=== PATIENT | female | born 1990 | race African-American/Black ===

== ENCOUNTER 2016-08-30 09:30 | Emergency (ER) | payer OTHER ==
[~2016-08-30] VITALS: Ht 165.1 cm; Wt 88.5 kg
[~2016-08-30 09:30] MED LIST: FLEXERIL PO; TORADOL 10 MG T10 MG PO
[2016-08-30] MEDS ORDERED: IBUPROFEN 600600 M1 PO (10:53)
[2016-08-30] MEDS ORDERED: KEFLEX500 MG PO (10:53)
[2016-08-30 11:21] VITALS: BP 107/72
== END 2016-08-30 10:55 | disposition home or self-care (01) ==
LOC: ER 09:30
DX: S91.311A Laceration without foreign body, right foot, initial encounter (principal); M06.9 Rheumatoid arthritis, unspecified; M32.9 Systemic lupus erythematosus, unspecified; F10.99 Alcohol use, unspecified with unspecified alcohol-induced disorder; Z88.1 Allergy status to other antibiotic agents; W26.9XXA Contact with unspecified sharp object(s), initial encounter; Y93.02 Activity, running; Y92.488 Other paved roadways as the place of occurrence of the external cause; Y99.8 Other external cause status

== ENCOUNTER 2016-09-13 17:30 | Emergency (ER) | payer OTHER ==
[~2016-09-13] VITALS: Ht 165.1 cm; Wt 90.7 kg
[~2016-09-13 17:30] MED LIST changes: +IBUPROFEN 600600 M1 PO; +KEFLEX500 MG PO
[2016-09-13 17:31] VITALS: BP 122/80
== END 2016-09-13 18:18 | disposition home or self-care (01) ==
LOC: ER 17:30
DX: S91.311D Laceration without foreign body, right foot, subsequent encounter (principal); M32.9 Systemic lupus erythematosus, unspecified; M06.9 Rheumatoid arthritis, unspecified; F10.99 Alcohol use, unspecified with unspecified alcohol-induced disorder; Z88.1 Allergy status to other antibiotic agents; X58.XXXD Exposure to other specified factors, subsequent encounter; Y92.89 Other specified places as the place of occurrence of the external cause; Y99.8 Other external cause status

== ENCOUNTER → 2018-01-01 | Outpatient (CLI) | payer OTHER ==
[~2018-01-01] MED LIST changes: +MOBIC7.5 MG PO; +NORCO 5-325 TA1 EACH PO; +SPIRONOLACTONE25 M1 PO; +TOPAMAX 25 MG T25 M1 PO
[2018-01-01 08:33] LABS: MCH 27.2 pg (26.0-34.0); MCHC 33.2 g/dL (28.0-37.0); RDW 14.3 % (10.5-14.5)
[2018-01-01 08:35] LABS: HEMATOCRIT 39.3 % (37.0-47.0); HEMOGLOBIN 13.1 gm/dL (12.0-15.0); MCV 81.9 fL (80.0-100.0); RBC 4.8 mil/uL (4.20-5.00); WBC 9.6 thou/uL (4.0-11.0)
[2018-01-01 08:41] LABS: CALCIUM 9.4 mg/dL (8.5-10.1); CREATININE 0.8 mg/dL (0.6-1.0); POTASSIUM 4.2 mmol/L (3.5-5.1)
[2018-01-01 08:47] LABS: APTT 27.8 Seconds (24.5-32.8); PROTIME 10.7 Seconds (9.3-11.4)
[2018-01-01 10:41] LABS: CSF GLUCOSE 58 mg/dL (40-70); CSF PROTEIN 26 mg/dL (15-45)
[2018-01-01 10:55] LABS: CSF CLARITY CLEAR; CSF COLOR COLORLESS; CSF RBC 2 /mm3; CSF WBC 1 /mm3 (0-10); VOLUME 10 ml
== END | disposition home or self-care (01) ==
LOC: RAD 07:41
PROVIDERS: Psychiatry & Neurology Neurology; Radiology Vascular & Interventional Radiology
DX: G93.2 Benign intracranial hypertension (principal); Z88.8 Allergy status to other drugs, medicaments and biological substances; Z79.899 Other long term (current) drug therapy

== ENCOUNTER 2018-01-03 11:42 | Emergency (ER) | payer OTHER ==
[~2018-01-03] VITALS: Ht 162.6 cm; Wt 86.2 kg
[~2018-01-03 11:42] MED LIST changes: -NORCO 5-325 TA1 EACH PO; -SPIRONOLACTONE25 M1 PO; -TOPAMAX 25 MG T25 M1 PO
[2018-01-03] MEDS ORDERED: SPIRONOLACTONE25 M1 PO (11:57)
[2018-01-03] MEDS ORDERED: TOPAMAX 25 MG T25 M1 PO (11:57)
[2018-01-03] MEDS ORDERED: NORCO 5-325 TA1 EACH PO (13:42)
[2018-01-03 14:12] VITALS: BP 103/60
== END 2018-01-03 14:24 | disposition home or self-care (01) ==
LOC: ER 11:42
DX: R51 Headache (principal); Z88.8 Allergy status to other drugs, medicaments and biological substances; M32.9 Systemic lupus erythematosus, unspecified; M06.9 Rheumatoid arthritis, unspecified

== ENCOUNTER 2019-02-27 18:14 | Emergency (ER) | payer OTHER ==
[~2019-02-27] VITALS: Ht 165.1 cm; Wt 75.8 kg
[~2019-02-27 18:14] MED LIST changes: +NORCO 5-325 TA1 EACH PO; +REGLAN 5 MG TAB5 MG PO; +SPIRONOLACTONE25 M1 PO; +TOPAMAX 25 MG T25 M1 PO
[2019-02-27] MEDS ORDERED: TAMIFLU75 MG PO (19:36)
[2019-02-27] MEDS ORDERED: TESSALON PERLE100 MG PO (19:36)
[2019-02-27 19:47] VITALS: BP 135/80
== END 2019-02-27 19:48 | disposition home or self-care (01) ==
LOC: ER 18:14
DX: J10.1 Influenza due to other identified influenza virus with other respiratory manifestations (principal); M06.9 Rheumatoid arthritis, unspecified; Z88.6 Allergy status to analgesic agent